=== PATIENT | male | born 1945 | race Two or more races ===

== ENCOUNTER → 2022-06-14 | Emergency (ER) | payer OTHER ==
[~2022-06-14] VITALS: Ht 182.9 cm; Wt 84.8 kg
[~2022-06-14] MED LIST: AZILECT1 MG; CARBIDOPA-LEVO1 EA10; GOCOVRI68.5 MG; NAMENDA10 MG; NORVASC5 MG; ROPINIROLE HCL8 MG
== END | disposition home or self-care (01) ==
LOC: ER 15:56
DX: I10 Essential (primary) hypertension (principal)